=== PATIENT | female | born 1995 | race Caucasian/White ===

== ENCOUNTER 2018-05-30 03:44 | Emergency (ER) | payer OTHER ==
[2018-05-30] MEDS ORDERED: KETOROLAC 30 MG/1 ML SDV IM ONE (04:12)
--- NOTE | 2018-05-30 04:23 | EDPHY ---
H & P Stated Complaint: abd pain Time Seen by Provider: 05/30/18 03:46 HPI/ROS: HPI The patient presents with left lower quadrant abdominal pain that began yesterday and has gotten progressively worse. As she describes intermittent waves of pain that last for about 30 min at a time as which are sharp in nature without radiation. She has used a heating pad and ibuprofen without any improvement in her symptoms. She has not had any vomiting. She was able to sleep some overnight, however awoke with worsening pain so comes to the emergency department. About 2 and half years ago she was diagnosed with a right ovarian cyst. She is not on any OCPs. As she does not have any dysuria, vaginal discharge, vaginal bleeding, is last menstrual period was about 20 days ago. She last had a bowel movement yesterday which was somewhat firm but normal. REVIEW OF SYSTEMS 10 systems were reviewed and negative with the exception of the elements mentioned in the history of present illness. PMHx: History of right-sided ovarian cyst Soc Hx: Here with her family PHYSICAL General Appearance: Alert, no distress Eyes: Pupils equal and round no pallor or injection ENT, Mouth: Mucous membranes moist Respiratory: There are no retractions, lungs are clear to auscultation Cardiovascular: Regular rate and rhythm Gastrointestinal: Abdomen is soft and with mild tenderness in the left lower quadrant without rebound or guarding no masses, bowel sounds normal Neurological: A&O, moves all extremities Skin: Warm and dry, no rashes Musculoskeletal: Neck is supple non tender Extremities: symmetrical, full range of motion Psychiatric: Patient is oriented X 3, there is no agitation Source: Patient Exam Limitations: No limitations - Personal History LMP (Females 10-55): 15-21 Days Ago Current Tetanus Diphtheria and Acellular Pertussis (TDAP): Yes - Medical/Surgical History Hx Asthma: No Hx Chronic Respiratory Disease: No Hx Diabetes: No Hx Cardiac Disease: No Hx Renal Disease: No Hx Cirrhosis: No Hx Alcoholism: No Hx HIV/AIDS: No Hx Splenectomy or Spleen Trauma: No - Social History Smoking Status: Never smoked Constitutional: Initial Vital Signs Temperature (C) 36.9 C 05/30/18 03:47 Heart Rate 74 05/30/18 03:47 Respiratory Rate 20 05/30/18 03:47 Blood Pressure 120/70 05/30/18 03:47 O2 Sat (%) 98 05/30/18 03:47 O2 Delivery Mode Room Air Allergies/Adverse Reactions: No Known Allergies Allergy (Unverified 05/30/18 03:46) Home Medications: Medication Instructions Recorded Wellbutrin Xl 05/30/18 Medical Decision Making - Diagnostics Imaging Results: Pelvic ultrasound demonstrates large left-sided simple ovarian cyst measuring up to 8 cm in diameter, discussed with Dr. Martínez of Radiology. Unable to visualize the left ovary. Imaging: Discussed imaging studies w/ call center dispatcher Radiologist, I viewed and interpreted images myself Differential Diagnosis: 23-year-old healthy female presents with is left lower quadrant abdominal pain for the last 1 day. Differential diagnosis includes ruptured ovarian cyst, ovarian torsion, less likely constipation or diverticulitis. In the emergency department, patient was given Toradol with significant improvement in her pain. Ultrasound was performed and did demonstrate large left-sided ovarian simple cyst measuring up to 8 cm. Left ovary was not visualized. Repeat abdominal exam shows very minimal left-sided lower quadrant tenderness. I believe her pain is related to the cyst itself. Given that her abdominal exam is benign, I feel torsion is unlikely. Further, I would expect that we would see an enlarged edematous L ovary. Plan for outpatient treatment with ibuprofen and acetaminophen. Patient is reluctant to start OCPs because these have worsened some of her symptoms of depression in the past. 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 She will be able to arrange for follow-up. I told her that she will need a repeat ultrasound. She is happy with this plan. - Data Points Medications Given: Discontinued Medications Ketorolac Tromethamine (Toradol) 30 mg IM EDNOW ONE Stop: 05/30/18 04:13 Last Admin: 05/30/18 04:18 Dose: 30 mg Departure - Departure Disposition: Home, Routine, Self-Care Clinical Impression: Left ovarian cyst Condition: Good Instructions: Ovarian Cyst (ED) Additional Instructions: The ultrasound you had performed today showed a left-sided ovarian cyst that measures about 8 cm. I think this is the cause of your symptoms. Because of this, I recommend you take ibuprofen 600 mg with acetaminophen 1000 mg every 6 hr for your pain. You can continue to use a heat pack. If your pain continues or becomes severe, you should return to the emergency department. Otherwise, please follow-up with your family physician. At a minimum, you will need a repeat ultrasound in about 6 weeks. Referrals: Erika Yin MD [Primary Care Provider] - As per Instructions
[2018-05-30 05:26] VITALS: BP 118/63
== END 2018-05-30 05:25 | disposition home or self-care (01) ==
DX: N83.292 Other ovarian cyst, left side (principal)
CPT/HCPCS: J1885

== ENCOUNTER 2018-06-02 11:45 | Day surgery (SDC) | payer OTHER ==
--- NOTE | 2018-06-01 18:18 | GHP ---
DATE OF ADMISSION: 06/02/2018 ADMITTING DIAGNOSES: 1. Left lower quadrant pain. 2. Large simple left ovarian cyst. HISTORY OF PRESENT ILLNESS: Patient is a 23-year-old nulliparous female with last menstrual period 05/30/2018, who presents for ER followup in my office. Patient was seen in the emergency room here at [facility] 2017 secondary to severe left lower quadrant pain. The patient states pain was sharp and stabbing, mostly localized to the left lower quadrant. There was associated nausea, but no vomiting. Patient denies any GI or complaints. She is now taking Tylenol and Motrin for the past 4 days around the clock and pain is still present. The patient states she "will not be able to live with this pain much longer." The patient does have a history of ovarian cyst in 2016 , which did not require surgery, and resolved on its own. The patient was on control pills in the past, which seemed to make her depression worse. Patient is not using any control at this time. The patient is a senior at and is very active. Pelvic ultrasound in emergency room did reveal a new simple cyst of the pelvis extending from the left adnexa to the right, touching the right ovary measuring 8.3 x 5.4 x 6.3 cm, a separate left ovary is not seen ; no torsion seen; trace free fluid seen in the cul-de-sac. OB HISTORY: Patient is nulliparous. GYNECOLOGIC HISTORY: Age of menarche at 11. Cycles every 28 to 31 days for 6 to 8 days, moderate flow, moderate cramping. The patient does not have a history of abnormal Pap smears. Last pap was in 2017 and normal. She denies history of exposure to any sexually transmitted diseases and did complete the Gardasil vaccine x3. PAST MEDICAL HISTORY: Remarkable for depression and anxiety. PAST SURGICAL HISTORY: [place] tooth extraction. MEDICATIONS: Wellbutrin 100 mg twice daily. ALLERGIES: No known drug allergies. SOCIAL HISTORY: Patient is a senior at and is very active. She denies any tobacco use. She drinks socially, and not weekly. Admits to marijuana use once a month. No other illicit drug use. FAMILY HISTORY: Maternal grandmother with breast cancer, at the age of 65. REVIEW OF SYSTEMS: 10-point review of systems is negative. Pertinent positives noted in HPI. STUDIES: As above. LABS: None. PHYSICAL EXAMINATION: VITAL SIGNS: On admission vital signs are stable. GENERAL: Patient is well-nourished, well-developed female. Alert and oriented x3. No apparent distress. SKIN: Warm and dry without rash. NEURO: Grossly intact. CARDIOVASCULAR: Regular rate and rhythm. LUNGS: Clear to auscultation bilaterally. ABDOMEN: Soft, nondistended. There is mild to moderate tenderness in the left lower quadrant. PELVIC EXAM: Bimanual exam reveals normal size uterus that is mobile, nontender, and anteverted; there is a large adnexal mass on the left side with fullness and tenderness to palpation. EXTREMITIES: Normal to inspection without calf tenderness or edema. ASSESSMENT/PLAN: Patient is a 23-year-old nulliparous female with acute onset left lower quadrant pain and a large simple left ovarian cyst. 1. Reviewed records and imaging with the patient and discussed with the size of this cyst, there is a high risk of ovarian torsion which is a medical emergency that can result in loss of an ovary. 2. Recommend proceeding to the operating room for diagnostic laparoscopy with drainage of cyst, removal of cyst wall and possible removal of ovary. The patient agrees with the plan at this time. 3. Will obtain surgical consents at the bedside. Did review surgery, its limitations, n.p.o. status and postop recovery with the patient. 4. Antibiotics call center support consultant to operating room. 5. Sequential compression devices for deep venous thrombosis prophylaxis. /[id number]/MODL MTDD
--- NOTE | 2018-06-02 11:45 | PDANEPAE ---
ANE History of Present Illness 23 with ovarian cyst ANE Past Medical History - Cardiovascular History Hx Hypertension: No Hx Arrhythmias: No Hx Chest Pain: No Hx Coronary Artery / Peripheral Vascular Disease: No Hx CHF / Valvular Disease: No Hx Palpitations: No - Pulmonary History Hx COPD: No Hx Asthma/Reactive Airway Disease: No Hx Recent Upper Respiratory Infection: No Hx Oxygen in Use at Home: No Hx Sleep Apnea: No Sleep Apnea Screening Result - Last Documented: Negative - Neurologic History Hx Cerebrovascular Accident: No Hx Seizures: No Hx Dementia: No - Endocrine History Hx Diabetes: No Hypothyroid: No Hyperthyroid: No Obesity: no - Renal History Hx Renal Disorders: No - Liver History Hx Hepatic Disorders: No - Neurological & Psychiatric Hx Hx Neurological and Psychiatric Disorders: Yes Neurological / Psychiatric History Comment: depression, anxiety - Cancer History Hx Cancer: No - Congenital Disorder History Hx Congenital Disorders: No - GI History GERD: no Hx Gastrointestinal Disorders: No - Other Health History Other Health History: wears glasses for driving. acne on face and chest - Chronic Pain History Chronic Pain: No - Surgical History Prior Surgeries: wisdom teeth removal ANE Review of Systems Review of systems is: negative Review of Systems: - Exercise capacity METS (RN): 6 METS ANE Patient History - Allergies Allergies/Adverse Reactions: No Known Allergies Allergy (Verified 06/01/18 18:36) - Home Medications Home Medications: Wellbutrin Xl 05/30/18 [Last Taken Unknown] - Anes Hx Anes Hx: no prior problems - Smoking Hx Smoking Status: Never smoked Marijuana use: Yes - Alcohol Use Alcohol Use: Occasionally - Family Anes Hx Family Anes Hx: none Family Hx Anesthesia Complications: none ANE Labs/Vital Signs - Vital Signs Height: 158.75 cm Weight: 50.802 kg ANE Physical Exam - Airway Neck exam: FROM Mallampati Score: Class 2 Mouth exam: normal dental/mouth exam - Pulmonary Pulmonary: no respiratory distress, clear to auscultation - Cardiovascular Cardiovascular: regular rate and rhythym, no murmur, rub, or gallop - ASA Status ASA Status: II ANE Anesthesia Plan Anesthesia Plan: general endotracheal anesthesia
[2018-06-02] MEDS ORDERED: ceFAZolin 2 GM/DEXTROSE 100 ML IV ONE (11:57)
[2018-06-02] MEDS ORDERED: LR 1,000 ML IV ONE (11:58)
--- NOTE | 2018-06-02 12:12 | PDHPUP ---
History & Physical Update H&P update statement: This history and physical update is based on an assessment of the patient which was completed after admission or registration (within 24 hours), but prior to the surgery/procedure. H&P update: H&P reviewed & patient examined, no change in patient's condition since H&P completed
[2018-06-02] MEDS ORDERED: MIDAZOLAM 2 MG/2 ML VIAL IVP ONE (12:52)
[2018-06-02] MEDS ORDERED: LIDOCAINE 2% 2 ML INJ ONE (12:57)
[2018-06-02] MEDS ORDERED: fentaNYL 100 MCG/2 ML INJ ONE ×2 (12:57→14:25)
[2018-06-02] MEDS ORDERED: PROPOFOL 200 MG/20 ML VIAL ONE (12:57)
[2018-06-02] MEDS ORDERED: BUPIVACAINE 0.5% 30 ML SDV ONE (13:51)
[2018-06-02] MEDS ORDERED: DEXAMETHASONE 4 MG/ML VIAL ONE (13:52)
[2018-06-02] MEDS ORDERED: SILVER NITRATE APPLICATOR 1 APPL TP ONE (13:52)
[2018-06-02] MEDS ORDERED: NALOXONE HCL 0.4 MG/ML INJ IVP PRN (14:04)
[2018-06-02] MEDS ORDERED: PROMETHAZINE HCL 25 MG/ML INJ IVP PRN (14:04)
[2018-06-02] MEDS ORDERED: ACETAMINOPHEN 500 MG TAB PO PRN (14:04)
[2018-06-02] MEDS ORDERED: HYDROmorphONE/DILAUDID 2 MG/ML INJ IVP PRN (14:04)
[2018-06-02] MEDS ORDERED: fentaNYL 100 MCG/2 ML INJ IVP PRN (14:04)
[2018-06-02] MEDS ORDERED: MEPERIDINE 25 MG/0.5 ML AMP IVP PRN (14:04)
--- NOTE | 2018-06-02 14:06 | POSTANESTH ---
Post Anesthetic Evaluation Cardiovascular Status: Normal, Stable Respiratory Status: Normal, Stable Level of Consciousness/Mental Status: Can Participate in Eval Pain Control: Adequate, Prn Tx Ordered Nausea/Vomiting Control: Adequate, Prn Tx Ordered Complications Possibly Related to Anesthesia: None Noted
[2018-06-02] MEDS ORDERED: KETOROLAC 30 MG/1 ML SDV ONE (14:44)
[2018-06-02] MEDS ORDERED: SUGAMMADEX SODIUM 200 MG/2 ML VIAL IVP ONE (14:46)
--- NOTE | 2018-06-02 15:07 | POSTOPPROG ---
Post Op Note Date of Operation: 06/02/18 Surgeon: Elaina Chen Mobile Product Manager: RJ Renee Anesthesiologist: Janelle Chen Anesthesia: GET(General Endotracheal) Pre-op Diagnosis: LLQ pain, large ovarian cyst Post-op Diagnosis: LLQ pain, large ovarian cyst, L ovarian torsion Indication: 23 y/o nullip with acute LLQ pain and large 8 cm simple cyst on US Procedure: Dx Laparoscopy, untorsion of L ovary, drainage of L cyst and L cystectomy Findings: Normal appearing ut, b/l tubes, R ovary; Lg 8 cm simp cyst L ov, torsed x2 Inf/Abcess present in the surg proc area at time of surgery?: No Depth: Organ Space EBL: Minimal (25 cc) Total fluids administered: 750 cc LR UO: 50 cc clear urine Complications: None Specimen(s): L ovarian cyst
[2018-06-02] MEDS ORDERED: PROMETHAZINE HCL 25 MG/ML INJ ONE (15:38)
[2018-06-02] MEDS ORDERED: MEPERIDINE 25 MG/0.5 ML AMP ONE (15:38)
[2018-06-02] MEDS ORDERED: ACETAMINOPHEN 500 MG TAB ONE (17:02)
[2018-06-02 18:05] VITALS: BP 120/80
== END 2018-06-02 18:05 | disposition home or self-care (01) ==
LOC: FSGY 11:45
PROVIDERS: ATTEND Obstetrics & Gynecology
PROC: 0UB14ZZ Excision of Left Ovary, Percutaneous Endoscopic Approach (ICD-10-PCS; principal; 2018-06-02 13:30)
DX: N83.02 Follicular cyst of left ovary (principal); N83.512 Torsion of left ovary and ovarian pedicle; F32.9 Major depressive disorder, single episode, unspecified; F41.9 Anxiety disorder, unspecified; Z79.899 Other long term (current) drug therapy
CPT/HCPCS: J0690; J1100; J1885; J2175; J2250; J2550; J2704; J3010

== ENCOUNTER → 2018-09-09 | Outpatient (CLI) | payer OTHER | LOC: FIMAGING 08:08 | PROVIDERS: ATTEND Family Medicine | DX: N83.291 Other ovarian cyst, right side (principal); Z98.890 Other specified postprocedural states ==

== ENCOUNTER → 2018-11-09 | Outpatient (CLI) | payer OTHER | LOC: FIMAGING 08:06 | PROVIDERS: ATTEND Physician Assistant | DX: R10.2 Pelvic and perineal pain (principal); N92.1 Excessive and frequent menstruation with irregular cycle; Z87.42 Personal history of other diseases of the female genital tract ==